=== PATIENT | male | born 1960 | race Caucasian/White ===

== ENCOUNTER 2016-07-12 06:23 | Inpatient (IN) | payer BC, OTHER ==
[~2016-07-12] VITALS: Ht 180.3 cm; Wt 110.9 kg
--- NOTE | ~2016-07-12 | EXE ---
[facility] [employer] [place] [address] STRESS ECHOCARDIOGRAM Name: FADY SANCHEZ Room #: 217-P [facility]#: [id number] Admission: 07/12/16 Attend Phys: Yosef Thomason MD Discharge: Date of : 62 Date of Service: 07/13/16 0837 Report #: [id number] THIS REPORT FOR: //name// Stress Echocardiography Ordering physician: Grecia Wise Referring physician: Grecia Wise Application Processor: ABRAHAM Hunter Nurse: Brandi Whipple RN, BSN Angelica Terrell RN Indications/History: Chest pain. BP: 134 / HR: 68bpm Height: 70in Weight: 243.5lb 76 Study data: Location: Echo laboratory. Routine. Informed consent was obtained. A baseline ECG was recorded. Treadmill exercise testing was performed using the Elias protocol. The patient exercised for 10 min, to protocol stage 4, to a maximal work rate of 13.1mets. Exercise was terminated due to achievement of target heart rate and moderate fatigue. Transthoracic stress echocardiography. Image quality was good. There were no complications. Hemodynamic findings + +---+ +--------+ !Stage !HR !BP (mmHg) !Symptoms! + +---+ +--------+ !Baseline !68 !134/76 (95) !None ! + +---+ +--------+ !Stage 1 !127!142/82 (102) !--------! + +---+ +--------+ !Stage 2 !155!180/78 (112) !--------! + +---+ +--------+ !Stage 3 !176! !--------! + +---+ +--------+ !Stage 4 !187! !--------! + +---+ +--------+ !Recovery; 1 min!153! !--------! + +---+ +--------+ [address] [address] STRESS ECHOCARDIOGRAM Name: FADY SANCHEZ Jaqui Room #: 217-P [facility]#: [id number] Admission: 07/12/16 Attend Phys: Yosef Thomason MD Discharge: Date of : 62 Date of Service: 07/13/16 0837 Report #: [id number] !Recovery; 2 min!129! !--------! + +---+ +--------+ !Recovery; 3 min!114!230 (systolic)!--------! + +---+ +--------+ !Recovery; 4 min!112!210/78 (122) !--------! + +---+ +--------+ !Recovery; 5 min!109!190/76 (114) !--------! + +---+ +--------+ !Recovery; 6 min!111!178/78 (111) !--------! + +---+ +--------+ Max HR: 187bpm (113% max predicted). Max predicted HR: 165bpm.Target HR achieved. Heart rate response was normal. There was a normal resting blood pressure with an appropriate response to stress. The rate-pressure product for the peak heart rate and blood pressure was 52684un Hg/min. No chest pain. ECG findings Baseline ECG: Normal. Stress ECG: There were no stress arrhythmias or conduction abnormalities. The stress ECG was negative for ischemia. Echo findings Baseline: LV size was normal. LV global systolic function was normal. The estimated LV ejection fraction was 60%. Normal wall motion; no LV regional wall motion abnormalities. Peak stress: LV size was reduced appropriately. LV global systolic function was vigorous. The estimated LV ejection fraction was 70%. Normal wall motion; no LV regional wall motion abnormalities. Summary Clinical response to exercise stress: non-ischemic. ECG response to exercise stress: non-ischemic. Echo response to exercise stress: non-ischemic. <ELECTRONICALLY SIGNED> By: Michael Sawyer MD 07/13/16 1138 0837 1138 Michael Sawyer MD /brianna
--- NOTE | ~2016-07-12 | EKG ---
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
[2016-07-12 06:28] VITALS: BP 142/70
[2016-07-12] MEDS ORDERED: AMITRIPTYLINE H50 M2 PO (06:33)
[2016-07-12] MEDS ORDERED: CLONAZEPAM 1 MG1 M1 PO (06:33)
[2016-07-12] MEDS ORDERED: PROPRANOLOL 1010 MG PO (06:35)
[2016-07-12 07:19] LABS: ABSOLUTE NEUTROPHILS 3.8 thou/uL (1.4-8.2); BASOPHILS 1.1 % (0.0-2.0); EOSINOPHILS 2.5 % (0.0-3.0); HEMATOCRIT 40.5 % (42.0-52.0); HEMOGLOBIN 14.1 gm/dL (14.0-18.0); LYMPHOCYTES 33.5 % (24.0-44.0); MCH 31.5 pg (26.0-34.0); MCHC 34.8 % (28.0-37.0); MCV 90.6 fL (80.0-100.0); PLATELET COUNT 180 thou/uL (150-400); POLYS 50.9 % (36.0-66.0); RBC 4.47 mil/uL (4.50-6.00); RDW 12.3 % (10.5-14.5); WBC 7.5 thou/uL (4.0-11.0)
[2016-07-12 07:24] LABS: MANUAL DIFF NO
[2016-07-12 07:28] LABS: ANION GAP 7 mmol/L (7-16); BUN 20 mg/dL (7-18); CHLORIDE 105 mmol/L (98-107); CO2 28 mmol/L (21-32); CREATININE 1.5 mg/dL (0.6-1.3); GLUCOSE 108 mg/dL (70-99); POTASSIUM 3.9 mmol/L (3.5-5.1); SODIUM 140 mmol/L (136-145)
[2016-07-12 07:33] LABS: APTT 26.4 Seconds (24.5-32.8); PROTIME 10.5 Seconds (9.3-11.4)
[2016-07-12 07:47] LABS: ALBUMIN 3.4 g/dL (3.4-5.0); ALKALINE PHOSPHATASE 81 U/L (46-116); CK-MB MASS 0.8 ng/mL (<0.5-3.6); MAGNESIUM 1.7 mg/dL (1.8-2.4); NT-PRO BRAIN NAT PEPTIDE 34 pg/mL (<300); SGOT 20 U/L (15-37); SGPT 43 U/L (30-65); TOTAL BILIRUBIN 0.3 mg/dL (<0.1-1.0); TOTAL PROTEIN 6.7 g/dL (6.4-8.2); TROPONIN-I < 0.04 ng/mL (<0.04-0.07)
[2016-07-12 08:26] LABS: CHOLESTEROL 170 mg/dL (<200); HDL CHOLESTEROL 42 mg/dL (>40); LDL CHOLESTEROL 115 mg/dL (<100); TRIGLYCERIDE 65 mg/dL (<150); VLDL 13 mg/dL (<40)
[2016-07-12 09:10] VITALS: BP 137/92
[2016-07-12 11:25] VITALS: BP 144/90
[2016-07-12 16:30] VITALS: BP 132/70
[2016-07-12 20:39] VITALS: BP 114/66
[2016-07-13 00:18] VITALS: BP 127/69
[2016-07-13 03:45] LABS: ALBUMIN 3.1 g/dL (3.4-5.0); CALCIUM 8.5 mg/dL (8.5-10.1); CREATININE 1.5 mg/dL (0.6-1.3); MAGNESIUM 1.8 mg/dL (1.8-2.4); POTASSIUM 4.1 mmol/L (3.5-5.1); TOTAL BILIRUBIN 0.4 mg/dL (<0.1-1.0); TOTAL PROTEIN 6.3 g/dL (6.4-8.2)
[2016-07-13 04:06] VITALS: BP 120/73
[2016-07-13 07:15] VITALS: BP 135/77
[2016-07-13 07:45] VITALS: BP 135/77
[2016-07-13 12:34] VITALS: BP 135/77
== END 2016-07-13 13:40 | disposition home or self-care (01) | DRG 313 ==
LOC: ER 06:23 → EROBS 08:08 → 2N 08:08 → EROBS 08:47 → 2N 08:47
PROVIDERS: Emergency Medicine; Nurse Practitioner
DX: R07.89 Other chest pain (principal); K21.9 Gastro-esophageal reflux disease without esophagitis; F41.9 Anxiety disorder, unspecified; N28.9 Disorder of kidney and ureter, unspecified; F32.9 Major depressive disorder, single episode, unspecified; Z83.3 Family history of diabetes mellitus; Z88.8 Allergy status to other drugs, medicaments and biological substances; Z82.49 Family history of ischemic heart disease and other diseases of the circulatory system
CPT/HCPCS: 10081

== ENCOUNTER 2021-02-02 09:03 | Emergency (ER) | payer OTHER ==
[~2021-02-02] VITALS: Ht 180.3 cm; Wt 108.9 kg
[~2021-02-02 09:03] MED LIST: AMITRIPTYLINE H50 M2 PO; CLONAZEPAM 1 MG1 M1 PO; PROPRANOLOL 1010 MG PO
[2021-02-02] MEDS ORDERED: REMERON15 M2 PO (09:16)
[2021-02-02] MEDS ORDERED: GUAIFEN-CODEINE10 ML PO (11:47)
[2021-02-02] MEDS ORDERED: PROAIR HFA8.5 GM INH (11:49)
[2021-02-02] MEDS ORDERED: AZITHROMYCIN 2250 MG PO (11:49)
[2021-02-02 12:00] VITALS: BP 162/97
== END 2021-02-02 12:00 | disposition home or self-care (01) ==
LOC: ER 09:03
DX: J06.0 Acute laryngopharyngitis (principal); J40 Bronchitis, not specified as acute or chronic; F41.9 Anxiety disorder, unspecified; F32.9 Major depressive disorder, single episode, unspecified; Z20.822 Contact with and (suspected) exposure to COVID-19; Z79.899 Other long term (current) drug therapy

== ENCOUNTER → 2021-03-05 | Outpatient (CLI) | payer OTHER ==
[~2021-03-05] MED LIST changes: +AZITHROMYCIN 2250 MG PO; +GUAIFEN-CODEINE10 ML PO; +PROAIR HFA8.5 GM INH; +REMERON15 M2 PO
== END ==
LOC: RAD 13:51
PROVIDERS: ATTEND Nurse Practitioner
DX: R06.2 Wheezing (principal); M47.814 Spondylosis without myelopathy or radiculopathy, thoracic region

== ENCOUNTER 2021-04-17 05:03 | Emergency (ER) | payer OTHER ==
[~2021-04-17] VITALS: Ht 180.3 cm; Wt 106.6 kg
[2021-04-17] MEDS ORDERED: PRILOSEC OTC20 MG PO (05:19)
[2021-04-17 05:36] LABS: ABSOLUTE NEUTROPHILS 5.8 thou/uL (1.4-8.2); BASOPHILS 0.8 % (0.0-2.0); EOSINOPHILS 3.4 % (0.0-3.0); HEMATOCRIT 39.7 % (42.0-52.0); LYMPHOCYTES 22.8 % (24.0-44.0); MCH 32.5 pg (26.0-34.0); MCHC 35.4 g/dL (28.0-37.0); MCV 91.9 fL (80.0-100.0); MONOCYTES 10.9 % (1.0-8.0); PLATELET COUNT 224 thou/uL (150-400); POLYS 62.1 % (36.0-66.0); RBC 4.32 mil/uL (4.50-6.00); RDW 12.6 % (10.5-14.5); WBC 9.4 thou/uL (4.0-11.0)
[2021-04-17 05:46] LABS: CALCIUM 8.9 mg/dL (8.5-10.1); CREATININE 1.5 mg/dL (0.7-1.3); POTASSIUM 3.5 mmol/L (3.5-5.1)
[2021-04-17 05:55] LABS: ALBUMIN 3.8 g/dL (3.4-5.0); TOTAL BILIRUBIN 0.8 mg/dL (0.2-1.0); TOTAL PROTEIN 7.1 g/dL (6.4-8.2)
[2021-04-17 08:10] VITALS: BP 188/87
--- NOTE | 2021-04-20 07:26 | EKG ---
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 : 1960 Requested By: Ashley Guillaume Order Number: [id number] MD: Baltazar Solitario Measurements Intervals [place] Rate: 75 P: 50 RI: 231 QRS: 49 QRSD: 99 T: 10 QT: 377 QTc: 421 Interpretive Statements Sinus rhythm Prolonged RI interval Borderline T abnormalities, inferior leads Baseline wander in lead(s) II,III,aVF Compared to ECG 07/12/2016 06:30:08 First degree AV block now present T-wave abnormality now present Electronically Signed On 04-20-2021 7:26:02 CDT by Baltazar Solitario [email or web address] <ELECTRONICALLY SIGNED> By: Baltazar Solitario MD, FAC 04/20/21 0726 0506 0506 Baltazar Solitario MD, [facility] /EPI
--- NOTE | 2021-04-20 07:26 | EKG ---
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 : 1960 Requested By: Ashley Guillaume Order Number: [id number] MD: Baltazar Solitario Measurements Intervals [place] Rate: 57 P: 23 MA: 214 QRS: 36 QRSD: 100 T: 21 QT: 423 QTc: 412 Interpretive Statements Sinus rhythm Prolonged MA interval Compared to ECG 04/17/2021 05:06:58 T-wave abnormality no longer present Electronically Signed On 04-20-2021 7:26:07 CDT by Baltazar Solitario [email or web address] <ELECTRONICALLY SIGNED> By: Baltazar Solitario MD, [facility] 04/20/21 0726 0640 0640 Baltazar Solitario MD, FACC /EPI
== END 2021-04-17 08:04 | disposition home or self-care (01) ==
LOC: ER 05:03
PROVIDERS: Emergency Medicine
DX: I10 Essential (primary) hypertension (principal); R07.89 Other chest pain; F41.9 Anxiety disorder, unspecified; Z79.899 Other long term (current) drug therapy; Z88.8 Allergy status to other drugs, medicaments and biological substances

== ENCOUNTER 2021-04-18 20:35 | Emergency (ER) | payer OTHER ==
[~2021-04-18] VITALS: Ht 180.3 cm; Wt 106.6 kg
[~2021-04-18 20:35] MED LIST changes: +PRILOSEC OTC20 MG PO
[2021-04-18 22:26] LABS: ABSOLUTE NEUTROPHILS 4.4 thou/uL (1.4-8.2); EOSINOPHILS 3.7 % (0.0-3.0); HEMATOCRIT 38.3 % (42.0-52.0); HEMOGLOBIN 13.2 gm/dL (14.0-18.0); LYMPHOCYTES 36.2 % (24.0-44.0); MCH 31.8 pg (26.0-34.0); MCHC 34.4 g/dL (28.0-37.0); MCV 92.4 fL (80.0-100.0); MONOCYTES 12.9 % (1.0-8.0); PLATELET COUNT 185 thou/uL (150-400); POLYS 46.2 % (36.0-66.0); RBC 4.15 mil/uL (4.50-6.00); RDW 12.7 % (10.5-14.5); WBC 9.4 thou/uL (4.0-11.0)
[2021-04-18 22:32] LABS: CALCIUM 8.4 mg/dL (8.5-10.1); CREATININE 1.5 mg/dL (0.7-1.3); POTASSIUM 3.4 mmol/L (3.5-5.1)
[2021-04-18 22:42] LABS: ALBUMIN 3.3 g/dL (3.4-5.0); TOTAL BILIRUBIN 0.2 mg/dL (0.2-1.0); TOTAL PROTEIN 6.5 g/dL (6.4-8.2)
[2021-04-18 23:35] VITALS: BP 173/73
[2021-04-19] MEDS ORDERED: PROPRANOLOL 4040 M1 PO (00:04)
== END 2021-04-19 00:10 | disposition home or self-care (01) ==
LOC: ER 20:35
PROVIDERS: Emergency Medicine
DX: I10 Essential (primary) hypertension (principal); F41.9 Anxiety disorder, unspecified; Z79.51 Long term (current) use of inhaled steroids; Z79.891 Long term (current) use of opiate analgesic; Z79.899 Other long term (current) drug therapy; Z88.8 Allergy status to other drugs, medicaments and biological substances

== ENCOUNTER 2021-04-22 17:29 | Inpatient (IN) | payer OTHER ==
[~2021-04-22] VITALS: Ht 180.3 cm; Wt 108.0 kg
--- NOTE | ~2021-04-22 | HC ---
[facility] [place] [address] CONSULTATION Name: FADY SANCHEZ Room #: 219-P ADM IN M.R.#: [id number] Admission: 04/22/21 Attend Phys: Gabriele Casper MD Discharge: Date of : 62 Report #: [id number] THIS REPORT FOR: cc: Merle Peterson DNP, Mary E. DNP Khosla, Parveen K. MD ~ DATE OF SERVICE: 04/23/2021 HISTORY OF PRESENT ILLNESS: This is a 61-year-old male patient for whom I was called stat last night. I talked to the nurse who called me and indicated that the patient was admitted with hypertensive crisis. They treated the patient's blood pressure. It was 233/109 when he came to the hospital, but then has fluctuated. His main symptom was with this the patient has developed some nausea, some dry heaves, some diffuse swelling. He has a history of headache and he described as migraine headaches and he had a headache. After this admission a first routine consult was sent, but subsequently as I understand from the nurse, they called me stat to see if I need to come and see the patient tonight. I discussed with the nurse and she indicated there was no focal sign and there was no really stroke-like symptoms this patient has, and therefore, they did not activate the code stroke and [place] was not called. She did not know about the CT scan, but then he called me back and indicated to me that the patient did have a CT scan on admission and that was unremarkable. Therefore, I had suggested getting an MRI of the brain and MRA of the head done to make sure there is no pathology going on in this patient in that regard. When I came to see this patient, he was gone for MRI and I went to the MRI and he was pretty close to completing the MRI and in fact has completed an MRI and was on his way back. I looked at the record and it looks like not only he had a CT scan of the head, he also had a CT angiogram of the head and neck, which would have given them an opportunity to look at the carotid intracranial circulation as well as venous sinuses. REVIEW OF SYSTEMS: Indicate that he does have hypertension. He started taking medication recently only. He does not know what the reason for this accelerated hypertension is. When I saw this patient, he indicated that his headache was much better, but was still there. A 14-point review of system was carried out and he indicated to me it has been mostly unremarkable, although he indicated he does not have much anxiety and depression, but he later corrected that when he takes the medication, then he does not have those symptoms. It was noticed that one of his medication is amitriptyline. PAST MEDICAL HISTORY: Positive for migraine headache. FAMILY HISTORY: Unremarkable. SOCIAL HISTORY: He does not drink alcohol on a regular basis. [address] [address] CONSULTATION Name: FADY SANCHEZ Room #: 219-P [facility] IN M.R.#: [id number] Admission: 04/22/21 Attend Phys: Gabriele Casper MD Discharge: Date of : 62 Report #: [id number] PHYSICAL EXAMINATION: He was alert, responsive, able to follow simple and complex command. Cranial nerve examination II-XII looks mostly unremarkable. I could not have a good look at the patient's fundus. His neuromuscular examination as checked for strength, sensation, reflexes and tone was unremarkable. There was no cerebellar sign. There was no meningeal sign. There was no carotid bruit. Cardiorespiratory examinations appear noncontributory. IMPRESSION: 1. Hypertensive encephalopathy. 2. Headache was most likely secondary to that. It is much better. RECOMMENDATIONS: 1. I do not have anything specific to add in this patient except we can check a sed rate, which I ordered. 2. He did get some contrast and his GFR has fallen. I will suggest continuing fluids. I have put a call and I am trying to reach Dr. Casper and I will let him know that. Otherwise, I do not have anything specific to add, especially because his neurological symptoms have mostly resolved and neurological workup is unremarkable. I will sign off, but please call if neurological symptoms return. Thank you very much for this referral. By: 1650 [id number] Poncho Cloud MD /nt
[~2021-04-22 17:29] MED LIST changes: +PROPRANOLOL 4040 M1 PO
[2021-04-22 17:36] VITALS: BP 233/109
[2021-04-22 18:12] LABS: ABSOLUTE NEUTROPHILS 6.1 thou/uL (1.4-8.2); BASOPHILS 0.6 % (0.0-2.0); EOSINOPHILS 2.2 % (0.0-3.0); HEMATOCRIT 44.4 % (42.0-52.0); HEMOGLOBIN 15.3 gm/dL (14.0-18.0); LYMPHOCYTES 21.1 % (24.0-44.0); MCHC 34.3 g/dL (28.0-37.0); MCV 93.1 fL (80.0-100.0); MONOCYTES 11.4 % (1.0-8.0); PLATELET COUNT 226 thou/uL (150-400); POLYS 64.7 % (36.0-66.0); RBC 4.77 mil/uL (4.50-6.00); RDW 12.7 % (10.5-14.5); WBC 9.5 thou/uL (4.0-11.0)
[2021-04-22 18:21] LABS: CALCIUM 8.9 mg/dL (8.5-10.1); CREATININE 1.5 mg/dL (0.7-1.3); POTASSIUM 3.9 mmol/L (3.5-5.1)
[2021-04-22 18:24] LABS: INR 1.04; PROTIME 11.3 Seconds (10.5-12.1)
[2021-04-22 18:32] LABS: TOTAL BILIRUBIN 0.5 mg/dL (0.2-1.0); TOTAL PROTEIN 7.5 g/dL (6.4-8.2)
[2021-04-22 21:02] VITALS: BP 149/53
[2021-04-22 21:17] VITALS: BP 186/89
[2021-04-22 21:50] VITALS: BP 195/88
--- NOTE | 2021-04-22 23:00 | NUR ---
PT IS ALERT AND OREINTED X4. CAME IN FOR HEADACHE HYPERTENSION. HISTORY OF ANXIETY NOTED. WITH HIM FOR ADMISSION STATUS. NEUR CALLED AND CONSULTED PER ORDER. MEDICATION ON MAR GIVEN FOR HIGH BLOOD PRESSURE. AND VITALS TAKEN. SOME RELEIEF NOTED WITH MEDS. FALL POLICY SIGNED AND INSTRUCTEDD HE HAS TO CALL PRIOR TO GETING OUT OF BED FOR ASSISTANCE PER REBECAISHARDIK . VERBALIZES UNDERSTANDING. YELLOW SOCKS ON. CALL LIGHT WITHIN REACH.
[2021-04-22] MEDS ORDERED: TOPROL XL100 MG PO (23:39)
[2021-04-23] VITALS (7 sets, daily range): BP systolic 176–194; BP diastolic 87–112
--- NOTE | 2021-04-23 06:14 | NUR ---
ONGOING NURISNG CARE OF PT MEDS GIVEN FOR NAUSEAU AND ONGOING BLOOD PRESSURE HIGH PER NURSING. PT APPEARS FRUSTRATED THIS AM. TYLNOL GIVEN ORDERED PER [facility] SUPERVISOR WITH NEW MEDS. BLOOD SLIGHTLY LOWER THAN PREVIOUS READING WITH MACHINE. AT THIS TIME
--- NOTE | 2021-04-23 07:23 | EKG ---
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
--- NOTE | 2021-04-23 11:47 | 2DMMODE ---
[facility] [place] [address] 2 D/M-MODE ECHOCARDIOGRAM Name: FADY SANCHEZ Room #: 219-P ADM IN M.R.#: [id number] Admission: 04/22/21 Attend Phys: Gabriele Casper MD Discharge: Date of : 62 Report #: [id number] THIS REPORT FOR: cc: Merle Peterson DNP, Mary E. DNP Lammoglia, Francisco J. MD ~ APPROVED REPORT Study performed: 04/23/2021 10:25:23 EXAM: Comprehensive 2D, Doppler, and color-flow Echocardiogram Patient Location: Bedside Room #: 219 Status: routine BSA: 2.25 HR: 76 bpm BP: 185/93 mmHg Rhythm: NSR Other Information Study Quality: Adequate Indications Hypertension/HDD 2D Dimensions IVSd: 12.27 (7-11mm) LVOT Diam: 18.98 (18-24mm) LVDd: 42.66 mm PWd: 11.96 (7-11mm) Ascending Ao: 30.69 (22-36mm) LVDs: 28.87 (25-40mm) Left Atrium: 34.22 (27-40mm) Aortic Root: 28.82 mm Volumes Left Atrial Volume (Systole) Single Plane 4CH: 36.09 mL Single Plane 2CH: 39.77 mL LA ESV Index: 19.00 mL/m2 Aortic Valve AoV Peak Jon.: 1.25 m/s AO Peak Gr.: 6.25 mmHg LVOT Max P.12 mmHg LVOT Max V: 1.13 m/s YANG Vmax: 2.56 cm2 [facility] [address] [place] [address] 2 D/M-MODE ECHOCARDIOGRAM Name: SANCHEZFADY Room #: 219-P [facility] IN [facility]#: [id number] Admission: 04/22/21 Attend Phys: Gabriele Casper MD Discharge: Date of : 62 Report #: [id number] Mitral Valve E/A Ratio: 0.8 MV Decel. Time: 203.94 ms MV E Max Jon.: 0.72 m/s MV A Jon.: 0.92 m/s MV PHT: 59.14 ms IVRT: 115.34 ms Pulmonary Valve PV Peak Jon.: 1.45 m/s PV Peak Gr.: 8.46 mmHg Pulmonary Vein P Vein S: 0.78 m/s P Vein A: 0.31 m/s P Vein D: 0.34 m/s P Vein A Dur.: 110.7 msec P Vein S/D Ratio: 2.29 Left Ventricle The left ventricle is normal size. There is normal LV segmental wall motion. Mild concentric left ventricular hypertrophy. Left ventricular systolic function is normal. The left ventricular ejection fraction is within the normal range. LVEF is 55-60%. Grade I - abnormal relaxation pattern. Right Ventricle The right ventricle is normal size. The right ventricular systolic function is normal. Atria The left atrium size is normal. The right atrium size is normal. Aortic Valve The aortic valve is normal in structure. Trace to mild aortic regurgitation. There is no aortic valvular stenosis. Mitral Valve The mitral valve is normal in structure. There is no mitral valve regurgitation noted. No evidence of mitral valve stenosis. Tricuspid Valve The tricuspid valve is normal in structure. There is no tricuspid valve regurgitation noted. Pulmonic Valve The pulmonary valve is normal in structure. There is no pulmonic valvular regurgitation. [facility] [place] [address] 2 D/M-MODE ECHOCARDIOGRAM Name: FADY SANCHEZ Room #: 219-P ADM IN M.R.#: [id number] Admission: 04/22/21 Attend Phys: Gabriele Casper MD Discharge: Date of : 62 Report #: [id number] Great Vessels The aortic root is normal in size. IVC is normal in size and collapses >50% with inspiration. Pericardium There is no pericardial effusion. <Conclusion> The left ventricle is normal size. Mild concentric left ventricular hypertrophy. LVEF is 55-60%. The right ventricle is normal size. The aortic valve is normal in structure. Trace to mild aortic regurgitation. The mitral valve is normal in structure. There is no mitral valve regurgitation noted. The tricuspid valve is normal in structure. The pulmonary valve is normal in structure. The aortic root is normal in size. There is no pericardial effusion. <ELECTRONICALLY SIGNED> By: Tru Al MD 04/23/21 1147 114 114 Tru Al MD /INF
[2021-04-23 11:48] LABS: URINE BILIRUBIN NEGATIVE (Negative); URINE BLOOD NEGATIVE (Negative); URINE CLARITY CLEAR; URINE COLOR YELLOW; URINE GLUCOSE-RANDOM* NEGATIVE (Negative); URINE KETONES TRACE (Negative); URINE LEUKOCYTES-REFLEX NEGATIVE (Negative); URINE NITRITE-REFLEX NEGATIVE (Negative); URINE PROTEIN (DIPSTICK) TRACE (Negative); URINE SPECIFIC GRAVITY 1.015 (1.005-1.035); URINE UROBILINOGEN 0.2 E.U./dl (0.2-1.0)
[2021-04-23 11:57] LABS: AMP/METHAMP Negative (Negative); BARBITURATES Negative (Negative); BENZODIAZEPINES Negative (Negative); COCAINE Negative (Negative); METHADONE Negative (Negative); OPIATES Negative (Negative); PCP Negative (Negative)
[2021-04-23 14:25] LABS: CALCIUM 9.5 mg/dL (8.5-10.1); CREATININE 1.9 mg/dL (0.7-1.3); POTASSIUM 4.3 mmol/L (3.5-5.1)
[2021-04-24 00:10] VITALS: BP 184/105
--- NOTE | 2021-04-24 01:03 | NUR ---
ASSESSMENT: NO CHANGES SINCE INITIAL ASSESSMENT WHICH WAS DONE @ 04/22/21 AT 2000
[2021-04-24 03:47] LABS: CALCIUM 8.6 mg/dL (8.5-10.1); CREATININE 1.9 mg/dL (0.7-1.3)
--- NOTE | 2021-04-24 04:20 | NUR ---
PT REMAIN ALERT AND ORIENT TIMES FOUR. UP SBA TO BR. STEADY GAIT, DENIES DIZZINESS. BP ELEVATED, HYDRALAZINE GIVEN PRN. PT REFUSED TO TAKE SCHEDULED METOPROLOL STATING THAT IT GIVES HIM A HEADACHE. PT DID C/O OF A LIGHT HEADACHE, FENTANYL GIVEN WITH PARTIAL RELIEF. SR PER MONITOR. PT REQUESTED TO HAVE MYLANTA PRN. ORDER WRITTEN. NO VOMITTING THIS SHIFT. SLOW PROGRESS TOWARDS DC GOALS. WILL CONTINUE TO MONITOR.
[2021-04-24 06:11] VITALS: BP 157/90
[2021-04-24 08:36] VITALS: BP 154/81
--- NOTE | 2021-04-24 11:22 | NUR ---
Assumed care of pt this AM. Pt is A&O x4, on RA. Denies any chest pain. SR w/ 1AVB on the monitor. Pt has questions about what plan is for the day & who will be in to see him. Pt up to toilet SBA. Denies any needs currently. Will continue to monitor.
[2021-04-24 12:09] VITALS: BP 164/66
--- NOTE | 2021-04-24 15:12 | NUR ---
Chart reviewed and case discussed with the care team. Pt being terated for htn/migraines with MRI pending. Pt is a&ox4 and indep with gait and adl's. He lives with his . He has health ins in place and pcp for f/u care. No cm interventions indicated at this time. No dc needs anticipated.
[2021-04-24 16:32] VITALS: BP 143/72
[2021-04-24 19:45] VITALS: BP 168/74
[2021-04-25 05:52] VITALS: BP 147/73
[2021-04-25 08:00] VITALS: BP 145/75
[2021-04-25 11:02] LABS: CALCIUM 8.9 mg/dL (8.5-10.1); CREATININE 1.7 mg/dL (0.7-1.3); POTASSIUM 3.8 mmol/L (3.5-5.1)
[2021-04-25 11:27] VITALS: BP 145/75
[2021-04-25 12:00] VITALS: BP 168/88
[2021-04-25] MEDS ORDERED: LOPRESSOR50 PO (12:04)
[2021-04-25] MEDS ORDERED: ALPRAZOLAM 0.50.5 M1 PO (12:04)
[2021-04-25] MEDS ORDERED: ACETAMINOPHEN325 M1 PO (12:04)
[2021-04-25] MEDS ORDERED: IMITREX 25 MG T25 M1 PO (12:04)
[2021-04-25 12:51] VITALS: BP 145/75
--- NOTE | 2021-04-25 13:51 | NUR ---
PATIENT DISCHARGE EDUCATION COMPLETED, NO QUESTIONS OR CONERNS EXPRESSED BY PATIENT OR . IV AND TELE REMOVED. WALKED OUT BY STAFF TO PRIVATE VEHICLE.
== END 2021-04-25 13:57 | disposition home or self-care (01) | DRG 304 ==
LOC: ER 17:29 → EROBS 20:54 → 2N 20:54
PROVIDERS: Emergency Medicine; Nurse Practitioner Family; ADMIT Internal Medicine; ATTEND Internal Medicine
DX: I16.0 Hypertensive urgency (principal); N17.0 Acute kidney failure with tubular necrosis; I67.4 Hypertensive encephalopathy; Z20.822 Contact with and (suspected) exposure to COVID-19; G44.89 Other headache syndrome; I12.9 Hypertensive chronic kidney disease with stage 1 through stage 4 chronic kidney disease, or unspecified chronic kidney disease; N18.9 Chronic kidney disease, unspecified; Z88.8 Allergy status to other drugs, medicaments and biological substances; F41.1 Generalized anxiety disorder; G43.909 Migraine, unspecified, not intractable, without status migrainosus
CPT/HCPCS: 10081

== ENCOUNTER → 2021-05-13 | Outpatient (CLI) | payer OTHER ==
[~2021-05-13] MED LIST changes: +ACETAMINOPHEN325 M1 PO; +ALPRAZOLAM 0.50.5 M1 PO; +IMITREX 25 MG T25 M1 PO; +LOPRESSOR50 PO; +TOPROL XL100 MG PO
== END ==
LOC: ULTRA 08:54
PROVIDERS: ATTEND Nurse Practitioner
DX: N18.30 Chronic kidney disease, stage 3 unspecified (principal); R09.89 Other specified symptoms and signs involving the circulatory and respiratory systems

== ENCOUNTER → 2021-06-03 | Outpatient (CLI) | payer OTHER | LOC: CAT 06-01 11:02 | PROVIDERS: ATTEND Nurse Practitioner | DX: K57.30 Diverticulosis of large intestine without perforation or abscess without bleeding (principal); R09.89 Other specified symptoms and signs involving the circulatory and respiratory systems; R93.89 Abnormal findings on diagnostic imaging of other specified body structures ==

== ENCOUNTER → 2021-07-13 | Outpatient (CLI) | payer OTHER ==
[~2021-07-13] VITALS: Ht 180.3 cm; Wt 104.3 kg
[~2021-07-13] MED LIST changes: +BENICAR20 MG PO; +CARVEDILOL25 MG PO; +LIPITOR40 MG PO; +NORVASC10 MG PO
[2021-07-13 10:05] VITALS: BP 93/50
[2021-07-13 10:05] LABS: HEMATOCRIT 37.8 % (42.0-52.0); HEMOGLOBIN 12.9 gm/dL (14.0-18.0); MCH 31.6 pg (26.0-34.0); MCV 92.9 fL (80.0-100.0); RBC 4.06 mil/uL (4.50-6.00); RDW 12.1 % (10.5-14.5); WBC 6.7 thou/uL (4.0-11.0)
[2021-07-13 10:15] LABS: CALCIUM 9.2 mg/dL (8.5-10.1); POTASSIUM 4.1 mmol/L (3.5-5.1)
== END | disposition home or self-care (01) ==
LOC: CATH 07:21
PROVIDERS: ATTEND Nuclear Medicine Nuclear Cardiology
DX: I15.0 Renovascular hypertension (principal); I70.1 Atherosclerosis of renal artery; I70.90 Unspecified atherosclerosis; M79.604 Pain in right leg; M79.605 Pain in left leg; I25.10 Atherosclerotic heart disease of native coronary artery without angina pectoris; N28.9 Disorder of kidney and ureter, unspecified; I10 Essential (primary) hypertension; E78.5 Hyperlipidemia, unspecified; Z98.890 Other specified postprocedural states; Z79.899 Other long term (current) drug therapy